=== PATIENT | female | born 1980 | race Caucasian/White ===

== ENCOUNTER → 2023-05-15 17:29 | Outpatient (REF) | payer OTHER, SELFPAY | LOC: RAD 17:29 | PROVIDERS: ATTENDING PHYSICIAN Obstetrics & Gynecology Gynecology; FAMILY PHYSICIAN Emergency Medicine | DX: N94.6 Dysmenorrhea, unspecified (principal) | CPT/HCPCS: 76830; 76856 ==

== ENCOUNTER → 2023-06-20 06:57 | Outpatient (REF) | payer OTHER, SELFPAY | LOC: RCS 06:57 | PROVIDERS: ATTENDING PHYSICIAN Internal Medicine Cardiovascular Disease; FAMILY PHYSICIAN Emergency Medicine | DX: I49.8 Other specified cardiac arrhythmias (principal); I49.3 Ventricular premature depolarization | CPT/HCPCS: 93306 ==

== ENCOUNTER → 2023-07-04 08:31 | Outpatient (REF) | payer OTHER, SELFPAY | LOC: PAVMRI 08:31 | PROVIDERS: ATTENDING PHYSICIAN Internal Medicine Cardiovascular Disease; FAMILY PHYSICIAN Emergency Medicine | DX: I49.3 Ventricular premature depolarization (principal); I49.8 Other specified cardiac arrhythmias | CPT/HCPCS: 75561; 75565; A9585 ==